=== PATIENT | male | born 1955 | race Hispanic/Latino ===

== ENCOUNTER → 2019-09-18 | Outpatient (CLI) | payer OTHER ==
[~2019-09-18] MED LIST: ATOR20TA65 PO; HYDR12.54 PO; INSU3INS5 SQ; LISI-613 PO; METF-446 PO; METO-391 PO; RANI150T7 PO; TAMS0.4C32 PO
== END | disposition home or self-care (01) ==
LOC: RAH 09:04
PROVIDERS: ATTEND Internal Medicine Cardiovascular Disease
DX: Z13.6 Encounter for screening for cardiovascular disorders (principal)
CPT/HCPCS: 75571